=== PATIENT | male | born 1995 | race Caucasian/White ===

== ENCOUNTER 2017-08-14 18:24 | Emergency (ER) | payer OTHER | END 2017-08-14 18:53 | disposition home or self-care (01) | LOC: ER 18:24 | DX: J02.9 Acute pharyngitis, unspecified (principal); R50.9 Fever, unspecified; J34.89 Other specified disorders of nose and nasal sinuses | CPT/HCPCS: 99283 ==

== ENCOUNTER 2020-11-15 15:32 | Emergency (ER) | payer OTHER ==
[~2020-11-15] VITALS: Ht 182.9 cm; Wt 122.0 kg
[~2020-11-15 15:32] MED LIST: AMOX1TAB61 PO; PRED20TA PO
[2020-11-15] MEDS ORDERED: cefTRIAXone IM 1 GM VIAL IM ONE (15:45)
[2020-11-15] MEDS ORDERED: methylPREDNISolone SOD SUCC PF 125 MG/2 ML VIAL. IM ONE (15:45)
[2020-11-15] MEDS ORDERED: LIDOCAINE 1% PF 2 ML VIAL. ONE (15:52)
[2020-11-15] MEDS ORDERED: PRED20TA PO (16:17)
[2020-11-15] MEDS ORDERED: AMOX1TAB61 PO (16:17)
--- NOTE | 2020-11-15 16:17 | PHYS DOC ---
Past Medical History Past Medical History: No Pertinent History Past Surgical History: No Surgical History Smoking Status: Never Smoker Alcohol Use: None Drug Use: None General Adult EDM: Chief Complaint: SORE THROAT HPI: HPI: Patient is a 25 year old male who present to ER for evaluation of sore throat for the last 7 days. Patient denies any fever, no cough, no trouble breathing. Patient was fully vaccinated for COVID-19 in September. He denies any earache, no neck pain, no headache. Patient said he was able to open and close his mouth without a problem. He did complain of sharp pain in his throat whenever he swallows. Review of Systems: Review of Systems: Constitutional: Denies fever or chills. [] Eyes: Denies change in visual acuity. [] HENT: Denies nasal congestion, positive for sore throat Respiratory: Denies cough or shortness of breath. [] Cardiovascular: Denies chest pain or edema. [] GI: Denies abdominal pain, nausea, vomiting, bloody stools or diarrhea. [] : Denies dysuria. [] Musculoskeletal: Denies back pain or joint pain. [] Integument: Denies rash. [] Neurologic: Denies headache, focal weakness or sensory changes. [] Endocrine: Denies polyuria or polydipsia. [] Lymphatic: Denies swollen glands. [] Psychiatric: Denies depression or anxiety. [] Heart Score: C/O Chest Pain: N/A Risk Factors: Risk Factors: DM, Current or recent (<one month) smoker, HTN, HLP, family history of CAD, obesity. Risk Scores: Score 0 - 3: 2.5% MACE over next 6 weeks - Discharge Home Score 4 - 6: 20.3% MACE over next 6 weeks - Admit for Clinical Observation Score 7 - 10: 72.7% MACE over next 6 weeks - Early Invasive Strategies Current Medications: Current Medications Medications (Trade) Dose Ordered Sig/Jenae Start Time Stop Time Status Last Admin Dose Admin Ceftriaxone Sodium (Rocephin Im) 1 gm 1X ONCE 11/15/20 15:45 11/15/20 15:48 DC 11/15/20 15:54 1 GM Lidocaine HCl (Xylocaine-Mpf 1% 2ml Vial) 2 ml STK-MED ONCE 11/15/20 15:52 11/15/20 15:52 DC Methylprednisolone Sodium Succinate (SOLU-Medrol 125MG VIAL) 125 mg 1X ONCE 11/15/20 15:45 11/15/20 15:48 DC 11/15/20 15:54 125 MG Allergies: Allergies: Allergies Coded Allergies Type Severity Reaction Last Updated Verified No Known Drug Allergies 08/14/17 No Physical Exam: PE: Constitutional: Well developed, well nourished, no acute distress, non-toxic appearance. [] HENT: Normocephalic, atraumatic, bilateral external ears normal, oropharynx erythema with exudation, uvula is midline bilateral tonsillar hypertrophy with exudates, symmetrical appearing. No trismus. No obvious evidence of peritonsillar abscess. Eyes: PERRLA, EOMI, conjunctiva normal, no discharge. [] Neck: Normal range of motion, no tenderness, supple, no stridor. [] Cardiovascular:Heart rate regular rhythm, no murmur [] Lungs & Thorax: Bilateral breath sounds clear to auscultation [] Abdomen: Bowel sounds normal, soft, no tenderness, no masses, no pulsatile masses. [] Skin: Warm, dry, no erythema, no rash. [] Back: No tenderness, no CVA tenderness. [] Extremities: No tenderness, no cyanosis, no clubbing, ROM intact, no edema. [] Neurologic: Alert and oriented X 3, normal motor function, normal sensory function, no focal deficits noted. [] Psychologic: Affect normal, judgement normal, mood normal. [] Current Patient Data: Labs: Current Medications Medications (Trade) Dose Ordered Sig/Jenae Route PRN Reason Start Time Stop Time Status Last Admin Dose Admin Methylprednisolone Sodium Succinate (SOLU-Medrol 125MG VIAL) 125 mg 1X ONCE IM 11/15/20 15:45 11/15/20 15:48 DC 11/15/20 15:54 Ceftriaxone Sodium (Rocephin Im) 1 gm 1X ONCE IM 11/15/20 15:45 11/15/20 15:48 DC 11/15/20 15:54 Lidocaine HCl (Xylocaine-Mpf 1% 2ml Vial) 2 ml STK-MED ONCE .ROUTE 11/15/20 15:52 11/15/20 15:52 DC Vital Signs: Vital Signs Date Time Temp Pulse Resp B/P (MAP) Pulse Ox O2 Delivery O2 Flow Rate FiO2 11/15/20 15:42 98.9 73 18 151/86 (93) 98 Room Air 98.9 EKG: EKG: [] Radiology/Procedures: Radiology/Procedures: [] Course & Med Decision Making: Course & Med Decision Making Pertinent Labs and Imaging studies reviewed. (See chart for details) Patient is a 24-year-old male who present to ER for evaluation of sore throat for 1 week. Patient had exudative tonsillitis, no obvious evidence of peritonsillar abscess patient was able to open and close his mouth without problem., Uvula is midline. Dragon Disclaimer: Policard Disclaimer: This electronic medical record was generated, in whole or in part, using a voice recognition dictation system. Departure Departure Impression: Primary Impression: Acute tonsillitis Disposition: HOME / SELF CARE / HOMELESS Condition: STABLE Referrals: NO PCP (PCP) Please follow up with [facility] this week. [address], [address] [place] [address] Phone number: [phone] Patient Instructions: Tonsillitis Additional Instructions: Thank you for visiting our Emergency Department. We appreciate you trusting us with your care. If any additional problems come up don't hesitate to return to visit us. Please follow up with your primary care provider so they can plan additional care if needed and know about the problem that you had. If symptoms worsen come back to the Emergency Department. Any concerning symptoms that start such as chest pain, shortness of air, weakness or numbness on one side of the body, running high fevers or any other concerning symptoms return to the ER. Scripts Prednisone (PREDNISONE) 20 Mg Tablet 1 TAB PO DAILY for 5 Days, #5 TAB Prov: NISA FRENCH DO 11/15/20 Amoxicillin/Potassium Clav (AUGMENTIN 875-125 TABLET) 1 Each Tablet 1 TAB PO BID for 10 Days, #20 TAB 0 Refills Prov: NSIA FRENCH DO 11/15/20 NISA FRENCH DO Nov 15, 2020 16:17
[2020-11-15 16:20] VITALS: BP 146/85
== END 2020-11-15 16:28 | disposition home or self-care (01) ==
LOC: ER 15:32
DX: J03.90 Acute tonsillitis, unspecified (principal)
CPT/HCPCS: 96372; 99284; J0696; J2930